=== PATIENT | male | born 2000 | race African-American/Black ===

== ENCOUNTER 2018-04-27 15:12 | Emergency (ER) | payer SELFPAY ==
--- NOTE | 2018-04-27 15:54 | ER ---
Nurse's Notes [facility] Name: Morteza Kesslre Age: 17 yrs Sex: Male : 2000 Arrival Date: 04/27/2018 Time: 15:12 Bed Waiting Private MD: None, None Diagnosis: ED Course: 04/27 15:12 Patient arrived in ED. sb2 15:13 None, None is Private Physician. sb2 15:53 Regino Hernandez MD is Attending Physician. aa5 Administered Medications: No medications were administered Outcome: 15:54 Patient left the ED. aa5 Signatures: Ariela Cheng RN RN aa5 Trinh Laguerre sb2
== END 2018-04-27 15:54 | disposition left against medical advice (07) ==
LOC: ER 15:12
DX: Z53.21 Procedure and treatment not carried out due to patient leaving prior to being seen by health care provider (principal)

== ENCOUNTER 2018-05-05 21:48 | Emergency (ER) | payer BC ==
[2018-05-05] MEDS ORDERED: IBUPROFEN 200 MG TAB PO ONE (22:04)
[2018-05-05] MEDS ORDERED: IBUPROFEN 400 MG TAB ONE (22:04)
--- NOTE | 2018-05-05 22:57 | EDPHYS ---
Physician Documentation [facility] Name: Morteza Kessler Age: 17 yrs Sex: Male : 2000 Arrival Date: 05/05/2018 Time: 21:49 Bed 25 Private MD: ED Physician Marcello Fuller HPI: 05/05 22:49 This 17 yrs old Black Male presents to ER via Ambulatory with complaints of Right Knee pm1 Injury, Knee Pain. 22:49 The patient presents with pain, that is acute, swelling. The complaints affect the pm1 right knee. Context: The problem was sustained at a sports field or court, resulted from playing sports, the patient can partially bear weight, the patient is able to ambulate, Problem is a result from a previous injury: Yes. right knee dislocation that self reduced while playing basketball about 2 years ago. Onset: The symptoms/episode began/occurred 1 week(s) ago. Modifying factors: The symptoms are alleviated by nothing. the symptoms are aggravated by movement, weight bearing, bending knee. Associated signs and symptoms: Pertinent positives: swelling, Pertinent negatives calf tenderness. Treatment prior to arrival includes: knee wrap. Severity of symptoms: in the emergency department the symptoms are unchanged, despite home interventions. The patient has experienced a previous episode, approximately 2 years ago, possible knee dislocation. The patient has not recently seen a physician. Playing basketball and caught a pass out of the air. Landed on right leg and hurt his knee. Pain and slight swelling to lateral and posterior aspect of right knee. Historical: - Allergies: 21:59 No Known Allergies; bb - Home Meds: 21:59 None [Active]; bb - PMHx: 21:59 None; bb - PSHx: 21:59 None; bb - Immunization history:: Adult Immunizations up to date. - Social history:: Smoking status: Patient uses tobacco products, denies chronic smoking, but will smoke occasionally, Patient uses alcohol, but reports only rare drinking. street drugs, marijuana. - Ebola Screening: : No symptoms or risks identified at this time. ROS: 22:49 Constitutional: Negative for fever, chills, and weight loss, Eyes: Negative for injury, pm1 pain, redness, and discharge, ENT: Negative for injury, pain, and discharge, Neck: Negative for injury, pain, and swelling, Cardiovascular: Negative for chest pain, palpitations, and edema, Respiratory: Negative for shortness of breath, cough, wheezing, and pleuritic chest pain, Abdomen/GI: Negative for abdominal pain, nausea, vomiting, diarrhea, and constipation, Back: Negative for injury and pain. 22:49 Skin: Negative for injury, rash, and discoloration, Neuro: Negative for headache, weakness, numbness, tingling, and seizure. 22:49 MS/extremity: Positive for pain, swelling, of the lateral aspect of right knee and posterior aspect of right knee, Negative for decreased range of motion, deformity. Exam: 22:49 Constitutional: This is a well developed, well nourished patient who is awake, alert, pm1 and in no acute distress. Head/Face: Normocephalic, atraumatic. Chest/axilla: Normal chest wall appearance and motion. Nontender with no deformity. No lesions are appreciated. Cardiovascular: Regular rate and rhythm with a normal S1 and S2. No gallops, murmurs, or rubs. Normal PMI, no JVD. No pulse deficits. Respiratory: Lungs have equal breath sounds bilaterally, clear to auscultation and percussion. No rales, rhonchi or wheezes noted. No increased work of breathing, no retractions or nasal flaring. Back: No spinal tenderness. No costovertebral tenderness. Full range of motion. Skin: Warm, dry with normal turgor. Normal color with no rashes, no lesions, and no evidence of cellulitis. 22:49 Musculoskeletal/extremity: Extremities: grossly normal except: noted in the posterior aspect of right knee and lateral aspect of right knee: tenderness, mild swelling, There is no evidence of decreased ROM, deformity. Vital Signs: 21:59 BP 144 / 74; Pulse 66; Resp 16 S; Temp 98.8(O); Pulse Ox 99% on R/A; Weight 79.38 kg bb (R); Height 6 ft. 2 in. (187.96 cm) (R); Pain 8/10; 23:18 BP 130 / 85; Pulse 77; Resp 18; Pulse Ox 100% on R/A; Pain 4/10; mg2 21:59 Body Mass Index 22.47 (79.38 kg, 187.96 cm) bb MDM: 21:56 Patient medically screened. pm1 22:54 Data reviewed: vital signs. Data interpreted: Pulse oximetry: on room air is 99 %. pm1 Interpretation: normal. Counseling: I had a detailed discussion with the patient and/or guardian regarding: the historical points, exam findings, and any diagnostic results supporting the discharge/admit diagnosis, radiology results, the need for outpatient follow up, for definitive care, a orthopedic surgeon, to return to the emergency department if symptoms worsen or persist or if there are any questions or concerns that arise at home. 05/05 22:00 Order name: Knee Right 3 View XRAY pm1 05/05 22:00 Order name: Crutches; Complete Time: 23:09 pm1 05/05 22:00 Order name: Knee Immobilizer; Complete Time: 23:09 pm1 Administered Medications: 22:04 Drug: Ibuprofen 600 mg Route: PO; mg2 22:57 Follow up: Response: No adverse reaction; Pain is decreased mg2 23:16 Drug: Tylenol #3 (300 mg-30 mg) 2 tabs Route: PO; mg2 23:16 Follow up: Response: No adverse reaction; Medication administered at discharge. mg2 Disposition: 23:29 Co-signature as Attending Physician, Marcello Fuller MD. pkl Disposition: 05/05/18 22:57 Discharged to Home. Impression: Pain in right knee - possible ligamentous injury. - Condition is Stable. - Discharge Instructions: Crutch Use, Knee Immobilizer, Knee Sprain, Knee Pain. - Prescriptions for Tylenol- Codeine #3 300-30 mg Oral Tablet - take 2 tablets by ORAL route every 6 hours As needed; 20 tablet. - Medication Reconciliation Form, Thank You Letter, Prescription Opioid Use form. - Follow up: Emergency Department; When: As needed; Reason: Worsening of condition. Follow up: Karan Tee MD; When: 2 - 3 days; Reason: Recheck today's complaints, Continuance of care, Re-evaluation by your physician. - Problem is new. - Symptoms have improved. Signatures: Dispatcher [employer] EDMS Marcello Fuller MD MD pkl Tracie Duarte RN RN bb Luis Alfredo Chilel, JEANIE SCRIPT SUPERVISOR pm1 Chivo Buchanan RN RN mg2 Corrections: (The following items were deleted from the chart) 23:18 22:57 05/05/2018 22:57 Discharged to Home. Impression: Pain in right knee - possible mg2 ligamentous injury. Condition is Stable. Forms are Medication Reconciliation Form, Thank You Letter, Antibiotic Education, Prescription Opioid Use. Follow up: Emergency Department; When: As needed; Reason: Worsening of condition. Follow up: Karan Tee; When: 2 - 3 days; Reason: Recheck today's complaints, Continuance of care, Re-evaluation by your physician. Problem is new. Symptoms have improved. pm1
--- NOTE | 2018-05-05 22:57 | ER ---
Nurse's Notes [facility] Name: Morteza Kessler Age: 17 yrs Sex: Male : 2000 Arrival Date: 05/05/2018 Time: 21:49 Bed 25 Private MD: Diagnosis: Pain in right knee-possible ligamentous injury Presentation: 05/05 21:58 Presenting complaint: Patient states: he injured his right knee playing basketball bb about a week ago right knee is still swollen and painful. Transition of care: patient was not received from another setting of care. Onset of symptoms was April 28, 2018. Risk Assessment: Do you want to hurt yourself or someone else? Patient reports no desire to harm self or others. Initial Sepsis Screen: Does the patient meet any 2 criteria? No. Patient's initial sepsis screen is negative. Does the patient have a suspected source of infection? No. Patient's initial sepsis screen is negative. Care prior to arrival: None. 21:58 Method Of Arrival: Ambulatory bb 21:58 Acuity: MONTSERRAT 4 bb Historical: - Allergies: 21:59 No Known Allergies; bb - Home Meds: 21:59 None [Active]; bb - PMHx: 21:59 None; bb - PSHx: 21:59 None; bb - Immunization history:: Adult Immunizations up to date. - Social history:: Smoking status: Patient uses tobacco products, denies chronic smoking, but will smoke occasionally, Patient uses alcohol, but reports only rare drinking. street drugs, marijuana. - Ebola Screening: : No symptoms or risks identified at this time. Screenin:08 Abuse screen: Denies threats or abuse. Denies injuries from another. Nutritional mg2 screening: No deficits noted. Tuberculosis screening: No symptoms or risk factors identified. Fall Risk Fall in past 12 months (25 points). Gait- Weak (10 pts.). Assessment: 22:06 General: Appears in no apparent distress. comfortable, Behavior is calm, cooperative. mg2 Pain: Complains of pain in right knee Pain does not radiate. Pain currently is 5 out of 10 on a pain scale. Quality of pain is described as aching, Pain began suddenly, 1 week ago Is intermittent, Alleviated by rest, Aggravated by increased activity, repositioning, weight bearing. Neuro: Level of Consciousness is awake, alert, obeys commands, Oriented to person, place, time, situation. Cardiovascular: Capillary refill < 3 seconds Patient's skin is warm and dry. Respiratory: Airway is patent Respiratory effort is even, unlabored, Respiratory pattern is regular, symmetrical. GI: No signs and/or symptoms were reported involving the gastrointestinal system. : No signs and/or symptoms were reported regarding the genitourinary system. EENT: No signs and/or symptoms were reported regarding the EENT system. Derm: Skin is intact, Skin is pink, warm \T\ dry. normal. Musculoskeletal: Circulation, motion, and sensation intact. Reports pain in right knee since last week. Pain is 5 out of 10 on a pain scale. 22:57 Reassessment: Patient appears in no apparent distress at this time. Patient and/or mg2 family updated on plan of care and expected duration. Pain level reassessed. Patient is alert, oriented x 3, equal unlabored respirations, skin warm/dry/pink. Vital Signs: 21:59 BP 144 / 74; Pulse 66; Resp 16 S; Temp 98.8(O); Pulse Ox 99% on R/A; Weight 79.38 kg bb (R); Height 6 ft. 2 in. (187.96 cm) (R); Pain 8/10; 23:18 BP 130 / 85; Pulse 77; Resp 18; Pulse Ox 100% on R/A; Pain 4/10; mg2 21:59 Body Mass Index 22.47 (79.38 kg, 187.96 cm) bb ED Course: 21:49 Patient arrived in ED. am2 21:56 Chivo Buchanan, VAISHNAVI is Primary Nurse. mg2 21:56 Luis Alfredo Chilel NP is PHCP. pm1 21:56 Marcello Fuller MD is Attending Physician. pm1 21:59 Triage completed. bb 21:59 Arm band placed on Patient placed in an exam room, on a stretcher, on pulse oximetry. bb 22:09 Patient has correct armband on for positive identification. Bed in low position. Side mg2 rails up X 1. Door closed. 22:54 Karan Tee MD is Referral Physician. pm1 23:03 Knee Right 3 View XRAY In Process Unspecified. EDMS 23:17 No provider procedures requiring assistance completed. Patient did not have IV access mg2 during this emergency room visit. Crutch training done. Knee immobilizer applied on right knee. Administered Medications: 22:04 Drug: Ibuprofen 600 mg Route: PO; mg2 22:57 Follow up: Response: No adverse reaction; Pain is decreased mg2 23:16 Drug: Tylenol #3 (300 mg-30 mg) 2 tabs Route: PO; mg2 23:16 Follow up: Response: No adverse reaction; Medication administered at discharge. mg2 Outcome: 22:57 Discharge ordered by MD. pm1 23:17 Discharged to home with crutches, with friend. mg2 23:17 Condition: stable 23:17 Discharge instructions given to patient, friend, Instructed on discharge instructions, follow up and referral plans. medication usage, Demonstrated understanding of instructions, follow-up care, medications, Prescriptions given X 1. 23:18 Patient left the ED. mg2 Signatures: Dispatcher [employer] EDTracie White RN RN bb Luis Alfredo Chilel NP B OPERATOR pm1 Farrah Ramírez am2 Chivo Buchanan RN RN mg2
[2018-05-05] MEDS ORDERED: CODEINE 30MG/APAP 300MG TAB ONE (23:14)
--- NOTE | 2018-05-06 06:47 | RAD REPORT ---
EXAM DESCRIPTION: RAD - Knee Right 3 View - 05/05/2018 11:04 pm CLINICAL HISTORY: Basketball injury, knee pain COMPARISON: None. FINDINGS: No fracture, dislocation or periosteal reaction.No measurable joint effusion seen. Lateral view was not optimal on portable imaging. No joint space narrowing. No foreign body or other soft ti ssue abnormality. IMPRESSION: No fracture. No dislocation or other acute bone finding. Joint effusion assessment was limited. Clinical concerns for internal derangement or occult bony injury could be further assessed with MR im aging.
== END 2018-05-05 23:18 | disposition home or self-care (01) ==
LOC: ER 21:48
DX: M25.561 Pain in right knee (principal); Z72.0 Tobacco use
CPT/HCPCS: 99284

== ENCOUNTER 2018-10-03 09:40 | Emergency (ER) | payer SELFPAY ==
[2018-10-03] MEDS ORDERED: DEXAMETHASONE 4 MG/ML VIAL ONE (10:40)
--- NOTE | 2018-10-03 11:39 | ER ---
Nurse's Notes [facility] Name: Morteza Kessler Age: 18 yrs Sex: Male : 2000 Arrival Date: 10/03/2018 Time: 09:43 Bed 17 Private MD: None, None Diagnosis: Streptococcal tonsillitis Presentation: 10/03 09:58 Presenting complaint: Patient states: Sore throat, ear pain, for the past 3 days. aj1 Denies fever. Patient reports that the same tonsil swells as often as 2 to 3 times a month. Transition of care: patient was not received from another setting of care. Onset of symptoms was September 30, 2018. Risk Assessment: Do you want to hurt yourself or someone else? Patient reports no desire to harm self or others. Initial Sepsis Screen: Does the patient meet any 2 criteria? No. Patient's initial sepsis screen is negative. Does the patient have a suspected source of infection? No. Patient's initial sepsis screen is negative. Care prior to arrival: None. 09:58 Method Of Arrival: Ambulatory aj1 09:58 Acuity: [place]TSERRAT 4 aj1 Triage Assessment: 09:59 General: Appears in no apparent distress. uncomfortable, Behavior is calm, cooperative, aj1 appropriate for age. Pain: Complains of pain in left aspect of posterior pharynx, left jaw and left ear Pain currently is 7 out of 10 on a pain scale. EENT: Throat is reddened has enlarged tonsils on left Reports difficulty swallowing. Neuro: Level of Consciousness is awake, alert, obeys commands. Cardiovascular: Patient's skin is warm and dry. Respiratory: Airway is patent Respiratory effort is even, unlabored, Respiratory pattern is regular, symmetrical. Historical: - Allergies: 09:59 No Known Allergies; aj1 - Home Meds: 09:59 None [Active]; aj1 - PMHx: 09:59 None; aj1 - PSHx: 09:59 None; aj1 - Immunization history:: Flu vaccine is not up to date. - Social history:: Smoking status: Patient uses tobacco products, denies chronic smoking, but will smoke occasionally. - Ebola Screening: : Patient denies travel to an Ebola-affected area in the 21 days before illness onset. Screenin:30 Abuse screen: Denies threats or abuse. Nutritional screening: No deficits noted. em Tuberculosis screening: No symptoms or risk factors identified. Fall Risk None identified. Vital Signs: 09:59 BP 130 / 78; Pulse 76; Resp 18; Temp 99.0; Pulse Ox 99% on R/A; Weight 79.38 kg (R); aj1 Height 6 ft. 2 in. (187.96 cm) (R); Pain 7/10; 09:59 Body Mass Index 22.47 (79.38 kg, 187.96 cm) aj1 ED Course: 09:43 Patient arrived in ED. sb2 09:43 None, None is Private Physician. sb2 09:59 Triage completed. aj1 09:59 Arm band placed on Patient placed in an exam room. aj 10:03 Valentino Doe PA is PHCP. [facility] 10:03 Gurinder Adler MD is Attending Physician. [facility] 10:23 Kevin Zhang LVN is Primary Nurse. em 10:30 Patient has correct armband on for positive identification. Placed in gown. Bed in low em position. Adult w/ patient. 11:39 Saima Stanley MD is Referral Physician. [facility] 12:08 No provider procedures requiring assistance completed. Patient did not have IV access em during this emergency room visit. Administered Medications: 10:39 Drug: Dexamethasone 10 mg Route: IM; Site: right gluteus; em 12:06 Follow up: Response: No adverse reaction em 11:55 Drug: Clindamycin 600 mg {Note: 2ml left gluteus, 2ml right gluteus .} Route: IM; Site: em Other; 12:06 Follow up: Response: No adverse reaction em 12:05 Not Given (Other Intervention Used): Clindamycin 900 mg IM once em Outcome: 11:39 Discharge ordered by . [facility] 12:08 Discharged to home ambulatory, with family. em 12:08 Condition: good 12:08 Discharge instructions given to patient, Instructed on discharge instructions, follow up and referral plans. medication usage, Demonstrated understanding of instructions, follow-up care, medications, Prescriptions given X 2. 12:08 Patient left the ED. em Signatures: Isabella Bobo RN RN aj1 Valentino Doe PA PA [facility] Kevin Zhang LVN LVN em Trinh Laguerre sb2
--- NOTE | 2018-10-03 11:40 | EDPHYS ---
Physician Documentation [facility] Name: Morteza Kessler Age: 18 yrs Sex: Male : 2000 Arrival Date: 10/03/2018 Time: 09:43 Bed 17 Private MD: None, None ED Physician Gurinder Adler HPI: 10/03 10:11 This 18 yrs old Black Male presents to ER via Ambulatory with complaints of Swollen jmm Glands. 10:11 The patient presents with sore throat. Onset: The symptoms/episode began/occurred jmm gradually, 3 day(s) ago. 10:14 Associated signs and symptoms: Pertinent negatives cough, fever. The patient has jmm experienced similar episodes in the past, several times. This is a 18 year old male with no chronic medical conditions that presents to the ED with sore throat beginning 3 days ago. patient states he has been diagnosed with strep tonsillitis multiple times in the past. Patient denies cough, denies shortness of breath. . Historical: - Allergies: 09:59 No Known Allergies; aj1 - Home Meds: 09:59 None [Active]; aj1 - PMHx: 09:59 None; aj1 - PSHx: 09:59 None; aj1 - Immunization history:: Flu vaccine is not up to date. - Social history:: Smoking status: Patient uses tobacco products, denies chronic smoking, but will smoke occasionally. - Ebola Screening: : Patient denies travel to an Ebola-affected area in the 21 days before illness onset. ROS: 10:14 Constitutional: Negative for fever, chills, and weight loss. jmm 10:14 Neck: Negative for injury, pain, and swelling, Cardiovascular: Negative for chest pain, palpitations, and edema, Respiratory: Negative for shortness of breath, cough, wheezing, and pleuritic chest pain, Abdomen/GI: Negative for abdominal pain, nausea, vomiting, diarrhea, and constipation, Skin: Negative for injury, rash, and discoloration, Neuro: Negative for headache, weakness, numbness, tingling, and seizure. 10:14 ENT: Positive for sore throat. 10:14 All other systems are negative. Exam: 10:14 Constitutional: This is a well developed, well nourished patient who is awake, alert, jmm and in no acute distress. Head/Face: atraumatic. 10:14 Cardiovascular: Regular rate and rhythm. No edema appreciated Respiratory: Normal respirations, no respiratory distress appreciated Back: Normal ROM Skin: General appearance color normal MS/ Extremity: Moves all extremities, no obvious deformities appreciated, no edema noted to the lower extremities Neuro: Awake and alert, normal gait Psych: Behavior is normal, Mood is normal, Patient is cooperative and pleasant 10:14 ENT: Posterior pharynx: Airway: normal, Tonsils: bilaterally enlarged, Uvula: midline, erythema, that is moderate, peritonsillar mass, is not appreciated. 10:14 Neck: Lymph nodes: lymphadenopathy is appreciated, anterior cervical nodes. Vital Signs: 09:59 BP 130 / 78; Pulse 76; Resp 18; Temp 99.0; Pulse Ox 99% on R/A; Weight 79.38 kg (R); aj1 Height 6 ft. 2 in. (187.96 cm) (R); Pain 7/10; 09:59 Body Mass Index 22.47 (79.38 kg, 187.96 cm) 1 MDM: 10:04 Patient medically screened. [facility] 11:31 Data reviewed: vital signs, nurses notes. Counseling: I had a detailed discussion with [facility] the patient and/or guardian regarding: the historical points, exam findings, and any diagnostic results supporting the discharge/admit diagnosis. 11:37 Data interpreted: Pulse oximetry: on room air is 99 %. Counseling: I had a detailed [facility] discussion with the patient and/or guardian regarding: lab results, the need for outpatient follow up, to return to the emergency department if symptoms worsen or persist or if there are any questions or concerns that arise at home. ED course: PE findings do not appear consistent with COAL CUTTING MACHINE OPERATOR. Patient given return precautions for increased swelling, increased pain, difficulty handling secretions, ect. Patient understood and agrees with the plan of care. . 10/03 10:01 Order name: Strep aj1 10/03 10:27 Order name: Group A Streptococcus Rapid Sc; Complete Time: 11:16 EDMS Administered Medications: 10:39 Drug: Dexamethasone 10 mg Route: IM; Site: right gluteus; em 12:06 Follow up: Response: No adverse reaction em 11:55 Drug: Clindamycin 600 mg {Note: 2ml left gluteus, 2ml right gluteus .} Route: IM; Site: em Other; 12:06 Follow up: Response: No adverse reaction em 12:05 Not Given (Other Intervention Used): Clindamycin 900 mg IM once em Disposition: 10/04 07:43 Co-signature as Attending Physician, Gurinder Adler MD. Disposition: 10/03/18 11:39 Discharged to Home. Impression: Streptococcal tonsillitis. - Condition is Stable. - Discharge Instructions: Strep Throat. - Prescriptions for Clindamycin HCl 150 mg Oral Capsule - take 2 capsule by ORAL route every 6 hours for 10 days; 80 capsule. Ultracet 37.5- 325 mg Oral Tablet - take 1 tablet by ORAL route every 6 hours - for up to 5 days; do not exceed 8 tablets per day.; 12 tablet. - Medication Reconciliation Form, Thank You Letter, Antibiotic Education, Prescription Opioid Use form. - Follow up: Saima Stanley MD; When: 2 - 3 days; Reason: Recheck today's complaints, Continuance of care, Re-evaluation by your physician. Signatures: Dispatcher [employer] Isabella Lucas RN RN aj1 Valentino Doe PA PA [facility] Kevin Zhang, MANAGER BANQUET MANAGER BANQUET Gurinder Adler MD MD Corrections: (The following items were deleted from the chart) 10/03 12:08 11:39 10/03/2018 11:39 Discharged to Home. Impression: Streptococcal tonsillitis. em Condition is Stable. Forms are Medication Reconciliation Form, Thank You Letter, Antibiotic Education, Prescription Opioid Use. Follow up: Saima Stanley; When: 2 - 3 days; Reason: Recheck today's complaints, Continuance of care, Re-evaluation by your physician. hitesh
[2018-10-03] MEDS ORDERED: CLINDAMYCIN IV 150 MG/ML (4 mL) VIAL ONE (12:01)
== END 2018-10-03 12:08 | disposition home or self-care (01) ==
LOC: ER 09:40
DX: J02.0 Streptococcal pharyngitis (principal); Z72.0 Tobacco use
CPT/HCPCS: 87081; 96372; 99283; S0077

== ENCOUNTER 2019-03-07 16:42 | Emergency (ER) | payer SELFPAY ==
--- OUTSIDE RECORDS SUMMARY | 2019-03-07 16:44 | XMS REPORT ---
:2000 Author Organization [facility] Address [facility] [address] [place] [address] [place] [id number] Care Team Providers Name Role Phone Unavailable Unavailable Unavailable Problems This patient has no known problems. Allergies, Adverse Reactions, Alerts This patient has no known allergies or adverse reactions. Medications This patient has no known medications.
--- NOTE | 2019-03-07 17:55 | EDPHYS ---
Physician Documentation [facility] Name: Morteza Kessler Age: 18 yrs Sex: Male : 2000 Arrival Date: 03/07/2019 Time: 16:44 Bed Treatment Private MD: ED Physician Gurinder Adler HPI: 03/07 17:35 This 18 yrs old Black Male presents to ER via Ambulatory with complaints of Sore Throat.kb 17:35 The patient presents with sore throat. The patient describes throat pain as constant. kb Onset: The symptoms/episode began/occurred 3 day(s) ago. Severity of symptoms: At their worst the symptoms were moderate, in the emergency department the symptoms are unchanged. Modifying factors: The symptoms are alleviated by nothing, the symptoms are aggravated by swallowing, Patient's oral intake status: good Denies contact with similarly ill indivduals. Associated signs and symptoms: Pertinent positives: Sore throat. The patient has experienced similar episodes in the past, multiple times. The patient has not recently seen a physician. Historical: - Allergies: 17:06 No Known Allergies; ph - PSHx: 17:06 None; ph - Immunization history:: Adult Immunizations up to date. - Social history:: Smoking status: Patient uses tobacco products, denies chronic smoking, but will smoke occasionally. - Ebola Screening: : No symptoms or risks identified at this time. ROS: 17:34 Constitutional: Negative for fever, chills, and weight loss, Neck: Negative for injury, kb pain, and swelling, Cardiovascular: Negative for chest pain, palpitations, and edema, Respiratory: Negative for shortness of breath, cough, wheezing, and pleuritic chest pain, Abdomen/GI: Negative for abdominal pain, nausea, vomiting, diarrhea, and constipation, MS/Extremity: Negative for injury and deformity, Skin: Negative for injury, rash, and discoloration, Neuro: Negative for headache, weakness, numbness, tingling, and seizure. 17:34 ENT: Positive for sore throat. Exam: 17:34 Constitutional: This is a well developed, well nourished patient who is awake, alert, kb and in no acute distress. Head/Face: Normocephalic, atraumatic. Chest/axilla: Normal chest wall appearance and motion. Nontender with no deformity. No lesions are appreciated. Cardiovascular: Regular rate and rhythm with a normal S1 and S2. No gallops, murmurs, or rubs. Normal PMI, no JVD. No pulse deficits. Respiratory: Lungs have equal breath sounds bilaterally, clear to auscultation and percussion. No rales, rhonchi or wheezes noted. No increased work of breathing, no retractions or nasal flaring. Abdomen/GI: Soft, non-tender, with normal bowel sounds. No distension or tympany. No guarding or rebound. No evidence of tenderness throughout. Skin: Warm, dry with normal turgor. Normal color with no rashes, no lesions, and no evidence of cellulitis. MS/ Extremity: Pulses equal, no cyanosis. Neurovascular intact. Full, normal range of motion. Neuro: Awake and alert, GCS 15, oriented to person, place, time, and situation. Cranial nerves II-XII grossly intact. Motor strength 5/5 in all extremities. Sensory grossly intact. Cerebellar exam normal. Normal gait. 17:34 ENT: TM's: are normal, Nose: is normal, Mouth: is normal, Posterior pharynx: Airway: normal, no evidence of obstruction, Tonsils: bilaterally enlarged, with erythema, Uvula: normal, midline, swelling, that is moderate, erythema, that is moderate, exudate, that is mild. Vital Signs: 17:06 BP 124 / 75; Pulse 63; Resp 20; Temp 98.7; Pulse Ox 100% on R/A; Weight 81.65 kg; ph Height 6 ft. 1 in. (185.42 cm); Pain 8/10; 17:06 Body Mass Index 23.75 (81.65 kg, 185.42 cm) ph MDM: 17:07 Patient medically screened. kb 17:35 Data reviewed: vital signs, nurses notes. Data interpreted: Pulse oximetry: on room air kb is 100 %. Interpretation: normal. 17:53 Counseling: I had a detailed discussion with the patient and/or guardian regarding: the kb historical points, exam findings, and any diagnostic results supporting the discharge/admit diagnosis, lab results, the need for outpatient follow up, an ENT specialist, a family practitioner, to return to the emergency department if symptoms worsen or persist or if there are any questions or concerns that arise at home. 03/07 17:08 Order name: Strep; Complete Time: 17:51 kb 03/07 17:53 Order name: Throat Culture [facility] Administered Medications: 18:10 Drug: GI Cocktail without - (Maalox Suspension 30 ml, Lidocaine Liquid 2 % 15 iw ml) Route: PO; Disposition: 03/07/19 17:54 Discharged to Home. Impression: Acute tonsillitis. - Condition is Stable. - Discharge Instructions: Tonsillitis, [id number]. - Prescriptions for Augmentin 875- 125 mg Oral Tablet - take 1 tablet by ORAL route every 12 hours for 7 days; 14 tablet. - Medication Reconciliation Form, Thank You Letter, Antibiotic Education, Prescription Opioid Use, Work release form form. - Follow up: Emergency Department; When: As needed; Reason: Worsening of condition. Follow up: Private Physician; When: 2 - 3 days; Reason: Recheck today's complaints, Continuance of care, Re-evaluation by your physician. Addendum: 03/11/2019 21:04 Co-signature as Attending Physician, Gurinder Adler MD. g s Signatures: Dispatcher [employer] [facility] Yudelka Rodrigues, QUANTITATIVE SOFTWARE ENGINEER-C QUANTITATIVE SOFTWARE ENGINEER-Ckb Marguerite Anguiano RN RN iw Laureen Mitchell RN RN Gurinder Adler MD MD Corrections: (The following items were deleted from the chart) 03/07 18:10 17:54 03/07/2019 17:54 Discharged to Home. Impression: Acute tonsillitis. Condition is iw Stable. Forms are Medication Reconciliation Form, Thank You Letter, Antibiotic Education, Prescription Opioid Use. Follow up: Emergency Department; When: As needed; Reason: Worsening of condition. Follow up: Private Physician; When: 2 - 3 days; Reason: Recheck today's complaints, Continuance of care, Re-evaluation by your physician. kb
--- NOTE | 2019-03-07 17:55 | ER ---
Nurse's Notes [facility] Name: Morteza Kessler Age: 18 yrs Sex: Male : 2000 Arrival Date: 03/07/2019 Time: 16:44 Bed Treatment Private MD: Diagnosis: Acute tonsillitis Presentation: 03/07 17:04 Presenting complaint: Patient states: Throat pain and swelling x 3 days, denies fever ph N/V, reports hx of tonsillitis and strep, states, " I get it like every other month." Reports pain and swelling to L side of throat. Transition of care: patient was not received from another setting of care. Onset of symptoms was March 07, 2019. Risk Assessment: Do you want to hurt yourself or someone else? Patient reports no desire to harm self or others. Initial Sepsis Screen: Does the patient meet any 2 criteria? No. Patient's initial sepsis screen is negative. Does the patient have a suspected source of infection? No. Patient's initial sepsis screen is negative. Care prior to arrival: None. 17:04 Method Of Arrival: Ambulatory ph 17:04 Acuity: MONTSERRAT 4 ph Triage Assessment: 17:50 General: Appears in no apparent distress. Behavior is calm, cooperative. iw Historical: - Allergies: 17:06 No Known Allergies; ph - PSHx: 17:06 None; ph - Immunization history:: Adult Immunizations up to date. - Social history:: Smoking status: Patient uses tobacco products, denies chronic smoking, but will smoke occasionally. - Ebola Screening: : No symptoms or risks identified at this time. Screenin:09 Abuse screen: Denies threats or abuse. Denies injuries from another. Nutritional iw screening: No deficits noted. Tuberculosis screening: No symptoms or risk factors identified. Fall Risk None identified. Assessment: 17:50 General: Appears in no apparent distress. Behavior is cooperative. Pain: Complains of iw pain in throat. Neuro: Level of Consciousness is awake, alert, obeys commands, Moves all extremities. Cardiovascular: Patient's skin is warm and dry. Respiratory: Airway is patent Respiratory effort is even, unlabored, Breath sounds are clear bilaterally. EENT: Throat is reddened has enlarged tonsils bilaterally with gag reflex present. Vital Signs: 17:06 BP 124 / 75; Pulse 63; Resp 20; Temp 98.7; Pulse Ox 100% on R/A; Weight 81.65 kg; ph Height 6 ft. 1 in. (185.42 cm); Pain 8/10; 17:06 Body Mass Index 23.75 (81.65 kg, 185.42 cm) ph ED Course: 16:44 Patient arrived in ED. tw3 17:05 Triage completed. ph 17:06 Arm band placed on Patient placed in an exam room. ph 17:07 Yudelka Rodrigues FNP-C is [facility]. kb 17:07 Gurinder Adler MD is Attending Physician. kb 17:30 Marguerite Anguiano, RN is Primary Nurse. iw 17:38 Patient has correct armband on for positive identification. Call light in reach. Side 5 rails up X 1. 17:38 Strep Sent. 5 17:38 Strep swab sent to lab. mh5 18:09 No provider procedures requiring assistance completed. Patient did not have IV access iw during this emergency room visit. Administered Medications: 18:10 Drug: GI Cocktail without - (Maalox Suspension 30 ml, Lidocaine Liquid 2 % 15 iw ml) Route: PO; Outcome: 17:54 Discharge ordered by MD. kb 18:09 Discharged to home ambulatory, with family. iw 18:09 Condition: good 18:09 Discharge instructions given to patient, family, Instructed on discharge instructions, follow up and referral plans. medication usage, Demonstrated understanding of instructions, follow-up care, medications, Prescriptions given X 1. 18:10 Patient left the ED. iw Signatures: Yudelka Rodrigues FNP-C FNP-Marguerite Felix, RN VAISHNAVI Laureen Mitchell RN RN Pay[facility] [place], [facility] tw3
[2019-03-07] MEDS ORDERED: MAGNE/ALUM HYDROXD 30 ML UCUP ONE (18:16)
[2019-03-07] MEDS ORDERED: IBUPROFEN 400 MG TAB ONE (18:16)
[2019-03-07] MEDS ORDERED: LIDOCAINE VISCOUS 2% SOLN 15 ML UDC ONE (18:16)
== END 2019-03-07 18:10 | disposition home or self-care (01) ==
LOC: ER 16:42
DX: J03.90 Acute tonsillitis, unspecified (principal); Z72.0 Tobacco use
CPT/HCPCS: 87070; 87081; 99283

== ENCOUNTER 2019-03-08 15:26 | Emergency (ER) | payer SELFPAY ==
--- OUTSIDE RECORDS SUMMARY | 2019-03-08 15:49 | XMS REPORT ---
:2000 [facility] [address] [place] [address] [place] [id number] Care Team Providers Name Role Phone Unavailable Unavailable Unavailable Problems This patient has no known problems. Allergies, Adverse Reactions, Alerts This patient has no known allergies or adverse reactions. Medications This patient has no known medications.
--- NOTE | 2019-03-08 16:12 | ER ---
Nurse's Notes [facility] Name: Morteza Kessler Age: 18 yrs Sex: Male : 2000 Arrival Date: 03/08/2019 Time: 15:28 Bed 17 Private MD: Diagnosis: Acute pharyngitis Presentation: 03/08 15:32 Presenting complaint: Patient states: sore throat x 3-4 days ago. Pt reports being seen aa5 here yesterday. Pt states "It's just not getting better". Pt states "I haven't even gotten my antibiotic prescription yet because it hurts too bad". 15:33 Transition of care: patient was not received from another setting of care. Onset of aa5 symptoms was February 2019. Risk Assessment: Do you want to hurt yourself or someone else? Patient reports no desire to harm self or others. Care prior to arrival: None. 15:33 Acuity: MONTSERRAT 5 aa5 15:33 Method Of Arrival: Ambulatory aa5 15:34 Initial Sepsis Screen: Does the patient meet any 2 criteria? No. Patient's initial aa5 sepsis screen is negative. Does the patient have a suspected source of infection? No. Patient's initial sepsis screen is negative. Historical: - Allergies: 15:34 No Known Allergies; aa5 - PMHx: 15:34 None; aa5 - PSHx: 15:34 None; aa5 - Immunization history:: Flu vaccine is not up to date. - Social history:: Smoking status: Patient/guardian denies using tobacco, Patient/guardian denies using alcohol, street drugs, The patient lives with family. - Ebola Screening: : No symptoms or risks identified at this time. - Family history:: not pertinent. Screenin:45 Abuse screen: Denies threats or abuse. Denies injuries from another. Nutritional aj1 screening: No deficits noted. Tuberculosis screening: No symptoms or risk factors identified. Fall Risk None identified. Assessment: 16:45 General: Appears in no apparent distress. uncomfortable, Behavior is calm, cooperative, aj1 appropriate for age. Pain: Complains of pain in left aspect of posterior pharynx and right aspect of posterior pharynx. Neuro: Level of Consciousness is awake, alert, obeys commands, Oriented to person, place, time, situation. Cardiovascular: Patient's skin is warm and dry. Respiratory: Airway is patent Respiratory effort is even, unlabored, Respiratory pattern is regular, symmetrical, Breath sounds are clear bilaterally. GI: No signs and/or symptoms were reported involving the gastrointestinal system. : No signs and/or symptoms were reported regarding the genitourinary system. EENT: Throat is reddened has enlarged tonsils bilaterally Reports sore throat. Derm: No signs and/or symptoms reported regarding the dermatologic system. Skin is pink, warm \\T\\ dry. normal. Musculoskeletal: No signs and/or symptoms reported regarding the musculoskeletal system. Circulation, motion, and sensation intact. Vital Signs: 15:35 BP 140 / 85; Pulse 74; Resp 18 S; Temp 98.5(TE); Pulse Ox 100% on R/A; Weight 81.65 kg aa5 (R); Height 6 ft. 1 in. (185.42 cm) (R); Pain 8/10; 15:35 Body Mass Index 23.75 (81.65 kg, 185.42 cm) aa5 ED Course: 15:28 Patient arrived in ED. as 15:32 Arm band placed on. aa5 15:33 Triage completed. aa5 15:43 Angely Blanco MD is Attending Physician. ma2 15:51 Isabella Bobo, RN is Primary Nurse. aj1 16:45 Patient has correct armband on for positive identification. Bed in low position. Call aj1 light in reach. Side rails up X 1. 16:45 No provider procedures requiring assistance completed. Patient did not have IV access aj1 during this emergency room visit. Administered Medications: 16:45 Drug: Rocephin (cefTRIAXone) 1 grams Route: IM; Site: left gluteus; aj1 17:05 Follow up: Response: No adverse reaction aj1 16:45 Drug: TORadol 60 mg Route: IM; Site: right gluteus; aj1 17:05 Follow up: Response: No adverse reaction aj1 Outcome: 16:12 Discharge ordered by . ma2 17:05 Patient left the ED. aj1 Signatures: Isabella Bobo RN RN aj1 Juli Arroyo Audri, RN RN aa5 Angely Blanco MD MD ma2 Corrections: (The following items were deleted from the chart) 15:33 15:32 Presenting complaint: Patient states: sore throat x 3-4 days ago. Pt reports aa5 being seen here yesterday. aa5 15:34 15:32 Presenting complaint: Patient states: sore throat x 3-4 days ago. Pt reports aa5 being seen here yesterday. Pt states "It's just not getting better" aa5 15:35 15:32 Presenting complaint: Patient states: sore throat x 3-4 days ago. Pt reports aa5 being seen here yesterday. Pt states "It's just not getting better" aa5
--- NOTE | 2019-03-08 16:12 | EDPHYS ---
Physician Documentation [facility] Name: Morteza Kessler Age: 18 yrs Sex: Male : 2000 Arrival Date: 03/08/2019 Time: 15:28 Bed 17 Private MD: ED Physician Angely Blanco HPI: 03/08 16:09 This 18 yrs old Black Male presents to ER via Ambulatory with complaints of Sore Throat.ma2 16:09 The patient presents with sore throat. Onset: The symptoms/episode began/occurred ma2 gradually, 2 day(s) ago. Severity of symptoms: At their worst the symptoms were mild, moderate, in the emergency department the symptoms are unchanged. Associated signs and symptoms: Pertinent negatives cough, dysphagia, fever, headache. The patient has not experienced similar symptoms in the past. was here yesterday strep was negative given augmentin however he did not refill it . Historical: - Allergies: 15:34 No Known Allergies; aa5 - PMHx: 15:34 None; aa5 - PSHx: 15:34 None; aa5 - Immunization history:: Flu vaccine is not up to date. - Social history:: Smoking status: Patient/guardian denies using tobacco, Patient/guardian denies using alcohol, street drugs, The patient lives with family. - Ebola Screening: : No symptoms or risks identified at this time. - Family history:: not pertinent. ROS: 16:09 Constitutional: Negative for fever, chills, and weight loss. ma2 16:09 ENT: Positive for sore throat, Negative for drainage from ear(s), foreign body sensation, hearing loss, pulling at ears, tinnitus, difficulty handling secretions, hoarseness. 16:09 All other systems are negative. Exam: 16:09 Constitutional: This is a well developed, well nourished patient who is awake, alert, ma2 and in no acute distress. Chest/axilla: Normal chest wall appearance and motion. Nontender with no deformity. No lesions are appreciated. Cardiovascular: Regular rate and rhythm with a normal S1 and S2. No gallops, murmurs, or rubs. Normal PMI, no JVD. No pulse deficits. Respiratory: Lungs have equal breath sounds bilaterally, clear to auscultation and percussion. No rales, rhonchi or wheezes noted. No increased work of breathing, no retractions or nasal flaring. Abdomen/GI: Soft, non-tender, with normal bowel sounds. No distension or tympany. No guarding or rebound. No evidence of tenderness throughout. 16:09 ENT: TM's: are normal, Nose: is normal, Posterior pharynx: Airway: normal, Tonsils: bilaterally enlarged, with exudate, Uvula: midline, swelling, is not appreciated, exudate, peritonsillar mass, is not appreciated, pooling of secretions, is not appreciated. Vital Signs: 15:35 BP 140 / 85; Pulse 74; Resp 18 S; Temp 98.5(TE); Pulse Ox 100% on R/A; Weight 81.65 kg aa5 (R); Height 6 ft. 1 in. (185.42 cm) (R); Pain 8/10; 15:35 Body Mass Index 23.75 (81.65 kg, 185.42 cm) aa5 MDM: 15:42 Patient medically screened. ma2 16:09 Differential diagnosis: pharyngitis, tonsillitis, upper respiratory infection. Data ma2 reviewed: vital signs, nurses notes. Counseling: I had a detailed discussion with the patient and/or guardian regarding: the historical points, exam findings, and any diagnostic results supporting the discharge/admit diagnosis, the presence of at least one elevated blood pressure reading (>120/80) during this emergency department visit, the need for outpatient follow up. Response to treatment: the patient's symptoms have markedly improved after treatment. Administered Medications: 16:45 Drug: Rocephin (cefTRIAXone) 1 grams Route: IM; Site: left gluteus; aj1 17:05 Follow up: Response: No adverse reaction aj1 16:45 Drug: TORadol 60 mg Route: IM; Site: right gluteus; aj1 17:05 Follow up: Response: No adverse reaction aj1 Disposition: 03/08/19 16:12 Discharged to Home. Impression: Acute pharyngitis. - Condition is Stable. - Discharge Instructions: Pharyngitis. - Medication Reconciliation Form, Thank You Letter, Antibiotic Education, Prescription Opioid Use form. - Follow up: Private Physician; When: Tomorrow; Reason: Continuance of care. Signatures: Isabella Bobo RN RN aj1 Ariela Cheng RN RN aa5 Angely Blanco MD MD ma2 Corrections: (The following items were deleted from the chart) 17:05 16:12 03/08/2019 16:12 Discharged to Home. Impression: Acute pharyngitis. Condition is aj1 Stable. Forms are Medication Reconciliation Form, Thank You Letter, Antibiotic Education, Prescription Opioid Use. Follow up: Private Physician; When: Tomorrow; Reason: Continuance of care. ma2
[2019-03-08] MEDS ORDERED: CEFTRIAXONE 1000 MG/VIAL ONE (16:49)
[2019-03-08] MEDS ORDERED: WATER FOR INJ,STERILE 10 ML ONE (16:50)
[2019-03-08] MEDS ORDERED: KETOROLAC 30 MG/ML INJ ONE (16:50)
== END 2019-03-08 17:05 | disposition home or self-care (01) ==
LOC: ER 15:26
DX: J02.9 Acute pharyngitis, unspecified (principal)
CPT/HCPCS: 96372; 99282